=== PATIENT | female | born 1985 | race Caucasian/White ===

== ENCOUNTER 2018-06-11 15:05 | Emergency (ER) | payer MEDICAID, OTHER ==
[~2018-06-11] VITALS: Ht 162.6 cm; Wt 110.5 kg
[~2018-06-11 15:05] MED LIST: METO10TA3 PO; ONDA8TAB9 PO
[2018-06-11 15:11] VITALS: BP 126/81
== END 2018-06-11 17:27 | disposition home or self-care (01) ==
LOC: ER 15:06
DX: M79.672 Pain in left foot (principal); Z79.899 Other long term (current) drug therapy
CPT/HCPCS: 73630; 99283

== ENCOUNTER 2021-06-17 18:00 | Emergency (ER) | payer SELFPAY ==
[~2021-06-17] VITALS: Ht 165.1 cm; Wt 103.2 kg
[2021-06-17 18:09] VITALS: BP 115/74
[2021-06-18] MEDS ORDERED: METH4TAB81 PO (00:31)
[2021-06-18] MEDS ORDERED: AMOX500C2 PO (00:31)
[2021-06-18] MEDS ORDERED: METR-159 PO (00:31)
[2021-06-18] MEDS ORDERED: acetaminophen 325mg tablet PO ONE (00:40)
== END 2021-06-18 00:56 | disposition home or self-care (01) ==
LOC: ER 18:01
DX: K02.9 Dental caries, unspecified (principal); K08.89 Other specified disorders of teeth and supporting structures; K12.0 Recurrent oral aphthae; K13.79 Other lesions of oral mucosa; R51.9 Headache, unspecified; Z79.2 Long term (current) use of antibiotics; Z79.899 Other long term (current) drug therapy
CPT/HCPCS: 99283

== ENCOUNTER 2024-12-30 15:27 | Emergency (ER) | payer OTHER ==
[~2024-12-30] VITALS: Ht 167.6 cm; Wt 103.8 kg
[~2024-12-30 15:27] MED LIST changes: +METH4TAB81 PO
[2024-12-30 15:54] VITALS: BP 136/77; PULSE 69; O2SAT 97
[2024-12-30 18:45] VITALS: RESP 16
[2024-12-30] MEDS: ketorolac trometh 30MG/ML vial 30 MG/ML VIAL IM ONE (18:45)
--- NOTE | 2024-12-30 18:55 | Physician Documentation ---
HPI ~ General Chief Complaint: Tooth Problem Stated Complaint: TOOTH PAIN Time Seen by MD: 18:07 Primary Medical Doctor: On license of [facility] History of Present Illness HPI Comment Patient states she fractured her of right bottom molar approximately week ago and has since developed increased pain swelling in the region. she does complain of increased pain and swelling of her cheek .denies any fevers or nausea vomiting Day of Onset: Dec 30, 2024 Medication Reconciliation Allergies: Coded Allergies: No Known Allergies (Unverified , 12/30/24) Scheduled Amoxicillin Trihydrate* (Amoxicillin*), 1 CAP PO Q8H Methylprednisolone (Medrol Dosepak), 1 TAB PO UD Scheduled PRN Metoclopramide Hcl* (Metoclopramide Hcl*), 1 TAB PO Q6H PRN for nausea/vomiting Ondansetron (Zofran Odt), 8 MG PO TID PRN PRN for nausea/vomiting Past Medical History Past Medical History: No Pertinent History Past Surgical History: no surgical history Last Menstrual Period: Dec 23, 2024 Alcohol Use: None Drug Use: none Lives with: Family Lives In: Home Occupation: employed Review of Systems All Other Systems at this time: Reviewed and Negative ROS As stated above in the HPI, otherwise all systems are reviewed and negative. Physical Exam Vital Signs: Temperature: 98.4, Source: Temporal, Heart Rate: 69, Respiratory Rate: 16, BP: 136/77, Pulse Oximetry: 97, Weight: 103.850 Oxygen Flow Rate: 0 Physical Exam General: Alert, no apparent distress. HEENT: PERRL, EOMI, no injection, moist mucous membranes. Notable to Afua's particularly in the right lower molar region there is a fracture tooth was erythema in the surrounding tissue Cardiovascular: Regular rate and rhythm, no murmurs. Neurologic: Oriented x4. Psychiatric: Normal mood and affect. Skin: Normal color, warm and dry. No edema, no ecchymosis. Progress Results/Orders Results/Orders Completed Orders - WELLINGTON JENKINS NP Ketorolac Trometh 30mg/Ml Vial (Toradol (12/30/24 18:25) Amoxicillin Capsule (Trimox Capsule) (12/30/24 18:25) Medications Received in ER Medications (Trade) Dose Ordered Sig/Janet Route PRN Reason Start Time Stop Time Status Last Admin Dose Admin (Toradol inj. 30mg/ml) 30 mg ONCE ONCE IM 12/30/24 18:25 12/30/24 18:26 DC 12/30/24 18:45 30 MG (Trimox capsule) 500 mg ONCE ONCE PO 12/30/24 18:25 12/30/24 18:26 DC 12/30/24 18:44 500 MG Vital Signs 12/30/24 12/30/24 12/30/24 15:54 18:45 19:17 Temp 98.4 98.4 Pulse 69 Resp 16 16 B/P (MAP) 136/77 Pulse Ox 97 O2 Flow Rate 0 Medical Decision Making Findings Going to treat patient for developing tooth abscess and/or infection secondary to poor dentition Afua's and a recent tooth fracture. Is hemodynamically stable and meets criteria for outpatient there Differential Dx:Considerations: Include: Alveolar fracture, Alveolar osteitis, ANUG, Facial Cellulitis, Periapical abscess, Peridontal abscess, Post-extraction bleeding, Pulpitis, Tooth avulsion, Tooth eruption, Tooth Fracture, Trigeminal neuralgia, Tooth subluxation, Other Departure Disposition: 01 HOME / SELF CARE / HOMELESS Impression: Primary Impression: Toothache Additional Impressions: Dental caries Dental abscess Condition: Stable Discharge Instructions: Dental Pain, Dental Caries, Adult Referrals: NO PRIMARY CARE PROVIDER (PCP) Prescriptions Amoxicillin Trihydrate* (Amoxicillin*) 500 Mg Capsule 1 CAP PO Q8H for 10 Days, #30 CAP Prov: WELLINGTON JENKINS NP 12/30/24 Education Educated: Patient Educated regarding: diagnosis Signature Scribe Signature: h Attestation: Scribed for Wellington Jenkins Termite Technician by Wellington Polk NP . 12/30/24 21:47 WELLINGTON JENKINS NP Dec 30, 2024 18:55
[2024-12-30] MEDS ORDERED: AMOX500C2 PO (18:59)
[2024-12-30 19:17] VITALS: TEMP 98.4
== END 2024-12-30 19:23 | disposition home or self-care (01) ==
LOC: ER 15:27
DX: K02.9 Dental caries, unspecified (principal); K04.7 Periapical abscess without sinus
CPT/HCPCS: 96372; 99283; J1885